=== PATIENT | female | born 1940 | race Asian ===

== ENCOUNTER 2017-04-06 22:11 | Observation (INO) | payer MEDICARE, MEDICAID ==
[~2017-04-06] VITALS: Ht 157.5 cm; Wt 59.2 kg
[~2017-04-06 22:11] MED LIST: AMLO10TA4 PO; BISA10SU54 PR; CARV12.543 PO; CLON0.1T PO; DIPH1TAB PO; DOCU-131 PO; GABA300C10 PO; HYDR12.53 PO; INSU100C5 SQ-INSULIN; LISI40TA PO; METF500T9 PO; ONDA4TAB10 PO; OXYB5TAB7 PO; POLY17PO5 PO; SIMV20TA3 PO; TEMA15CA PO; TRAM-47 PO; [UNRECOGNIZED DRUG - CODE] PO; coreg; lisinopril
[2017-04-06 22:57] LABS: HEMATOCRIT 50.5 % (34.6-47.8); HEMOGLOBIN 17.1 g/dL (11.7-16.4); WHITE BLOOD COUNT 12.3 x10^3/uL (3.4-10)
[2017-04-06 23:09] LABS: ASPARTATE AMINO TRANSFERASE 37 U/L (15-37); BLOOD UREA NITROGEN 21 mg/dL (7-18)
[2017-04-06 23:15] LABS: IS PT STATUS REG ER OR PRE ER? YES
[2017-04-07] MEDS ORDERED: SODIUM CHLORIDE FLUSH 10ML SYR IVF PRN (02:30)
[2017-04-07] MEDS: SODIUM CHLORIDE 0.9% 1,000 ML IV SCH ×2 (02:41→12:35)
[2017-04-07] MEDS ORDERED: SODIUM CHLORIDE 0.9% 1,000ML IVBOLUS ONE (03:00)
[2017-04-07] MEDS ORDERED: ONDANSETRON 2MG/ML, 2ML IVPush PRN (03:00)
[2017-04-07] MEDS ORDERED: GLUCAGON 1 MG IM PRN (03:00)
[2017-04-07] MEDS ORDERED: DEXTROSE 50%, 50ML SYRINGE IVPush PRN (03:00)
[2017-04-07] MEDS ORDERED: DEXTROSE 4 GM TAB.CHEW PO PRN (03:00)
[2017-04-07] MEDS ORDERED: hydrALAzine 20 MG/ML, 1ML IVPush PRN (03:00)
[2017-04-07] MEDS ORDERED: ENOXAPARIN 40 MG/0.4 ML ONE (03:30)
[2017-04-07 03:44] VITALS: BP 160/88
[2017-04-07] MEDS: ENOXAPARIN 40 MG/0.4 ML SQ SCH (05:12)
[2017-04-07 07:53] VITALS: BP 108/62
[2017-04-07] MEDS: OXYBUTYNIN CHLORIDE 5 MG TABLET PO SCH ×2 (08:07→21:25)
[2017-04-07] MEDS: SODIUM CHLORIDE FLUSH 10ML SYR IVF SCH ×2 (08:07→20:50)
[2017-04-07] MEDS: metFORMIN XR 500 MG TAB.ER.24H PO SCH ×2 (08:07→21:27)
[2017-04-07 12:51] VITALS: BP 130/74
[2017-04-07 20:00] VITALS: BP 153/78
[2017-04-07] MEDS: SIMVASTATIN 20 MG TABLET PO SCH (20:50)
[2017-04-08 02:00] VITALS: BP 142/72
[2017-04-08] MEDS: SODIUM CHLORIDE 0.9% 1,000 ML IV SCH ×3 (02:51→22:37)
[2017-04-08] MEDS: ASPIRIN 81 MG TABLET EC PO SCH (05:24)
[2017-04-08] MEDS: ENOXAPARIN 40 MG/0.4 ML SQ SCH (05:25)
[2017-04-08 06:39] LABS: HEMATOCRIT 39.7 % (34.6-47.8); HEMOGLOBIN 13.6 g/dL (11.7-16.4); WHITE BLOOD COUNT 4.8 x10^3/uL (3.4-10)
[2017-04-08 06:55] LABS: ASPARTATE AMINO TRANSFERASE 24 U/L (15-37); BLOOD UREA NITROGEN 13 mg/dL (7-18)
[2017-04-08 08:35] VITALS: BP 146/85
[2017-04-08] MEDS: OXYBUTYNIN CHLORIDE 5 MG TABLET PO SCH ×2 (09:51→21:10)
[2017-04-08] MEDS: metFORMIN XR 500 MG TAB.ER.24H PO SCH ×2 (09:52→21:10)
[2017-04-08] MEDS: SODIUM CHLORIDE FLUSH 10ML SYR IVF SCH ×2 (09:52→21:10)
[2017-04-08 13:55] VITALS: BP 134/80
[2017-04-08 20:00] VITALS: BP 179/78
[2017-04-08] MEDS: SIMVASTATIN 20 MG TABLET PO SCH (21:10)
[2017-04-08] MEDS: ACETAMINOPHEN 325 MG TABLET PO PRN (21:10)
[2017-04-08 23:11] VITALS: BP 162/80
[2017-04-09 02:00] VITALS: BP 167/73
[2017-04-09] MEDS: ASPIRIN 81 MG TABLET EC PO SCH (05:37)
[2017-04-09] MEDS: ENOXAPARIN 40 MG/0.4 ML SQ SCH (05:37)
[2017-04-09 08:10] VITALS: BP 172/89
[2017-04-09 09:15] VITALS: BP_SYST 148; BP_SYST 157; BP_DIAS 79
[2017-04-09] MEDS: OXYBUTYNIN CHLORIDE 5 MG TABLET PO SCH ×2 (09:19→20:07)
[2017-04-09] MEDS: SODIUM CHLORIDE FLUSH 10ML SYR IVF SCH ×2 (09:19→20:07)
[2017-04-09] MEDS: SODIUM CHLORIDE 0.9% 1,000 ML IV SCH ×2 (09:19→20:07)
[2017-04-09] MEDS: metFORMIN XR 500 MG TAB.ER.24H PO SCH ×2 (09:19→20:08)
[2017-04-09] MEDS ORDERED: ASPI-621 PO (10:59)
[2017-04-09 12:57] VITALS: BP 158/73
[2017-04-09] MEDS: SIMVASTATIN 20 MG TABLET PO SCH (20:08)
[2017-04-09 20:15] VITALS: BP 180/74
[2017-04-10 01:36] VITALS: BP 191/89
[2017-04-10 05:51] VITALS: BP 168/79
[2017-04-10] MEDS: ENOXAPARIN 40 MG/0.4 ML SQ SCH (05:55)
[2017-04-10] MEDS: ASPIRIN 81 MG TABLET EC PO SCH (05:55)
[2017-04-10] MEDS: SODIUM CHLORIDE 0.9% 1,000 ML IV SCH ×2 (05:55→14:24)
[2017-04-10 07:09] VITALS: BP 151/80
[2017-04-10] MEDS ORDERED: METO-93 PO (08:47)
[2017-04-10] MEDS ORDERED: LISI-170 PO (08:47)
[2017-04-10] MEDS: METOPROLOL SUCCINATE 50 MG TAB.ER.24H PO SCH (09:00)
[2017-04-10] MEDS ORDERED: METOPROLOL SUCCINATE 25 MG TAB.ER.24H ONE (09:09)
[2017-04-10] MEDS: LISINOPRIL 20 MG TABLET PO SCH ×2 (09:20→20:43)
[2017-04-10] MEDS: OXYBUTYNIN CHLORIDE 5 MG TABLET PO SCH ×2 (09:20→20:43)
[2017-04-10] MEDS: metFORMIN XR 500 MG TAB.ER.24H PO SCH ×2 (09:22→20:43)
[2017-04-10] MEDS: SODIUM CHLORIDE FLUSH 10ML SYR IVF SCH ×2 (09:27→20:43)
[2017-04-10] MEDS ORDERED: PNEUMOCOCCAL 23 VACCINE IM-VACC ONE (10:00)
[2017-04-10] MEDS ORDERED: FLU VACC QS2017-18 (36MOS+) UP/PF 0.5 ML IM-VACC ONE (10:00)
[2017-04-10 12:13] VITALS: BP 171/80
[2017-04-10 12:52] VITALS: BP 166/72
[2017-04-10 19:21] VITALS: BP 105/62
[2017-04-10] MEDS: SIMVASTATIN 20 MG TABLET PO SCH (20:43)
[2017-04-10] MEDS: ACETAMINOPHEN 325 MG TABLET PO PRN (20:44)
[2017-04-11] MEDS: SODIUM CHLORIDE 0.9% 1,000 ML IV SCH ×3 (01:00→17:38)
[2017-04-11 02:39] VITALS: BP 153/64
[2017-04-11] MEDS: METOPROLOL SUCCINATE 50 MG TAB.ER.24H PO SCH (06:36)
[2017-04-11] MEDS: ENOXAPARIN 40 MG/0.4 ML SQ SCH (06:36)
[2017-04-11] MEDS: ASPIRIN 81 MG TABLET EC PO SCH (06:36)
[2017-04-11 08:00] VITALS: BP 152/78
[2017-04-11] MEDS: OXYBUTYNIN CHLORIDE 5 MG TABLET PO SCH ×2 (08:00→20:15)
[2017-04-11] MEDS: LISINOPRIL 20 MG TABLET PO SCH ×2 (08:00→20:15)
[2017-04-11] MEDS: SODIUM CHLORIDE FLUSH 10ML SYR IVF SCH ×2 (08:00→20:15)
[2017-04-11] MEDS: metFORMIN XR 500 MG TAB.ER.24H PO SCH ×2 (08:00→20:15)
[2017-04-11 14:00] VITALS: BP 147/72
[2017-04-11 18:48] VITALS: BP 140/71
[2017-04-11] MEDS: SIMVASTATIN 20 MG TABLET PO SCH (20:15)
[2017-04-12 00:52] VITALS: BP 149/88
[2017-04-12] MEDS: SODIUM CHLORIDE 0.9% 1,000 ML IV SCH (05:02)
[2017-04-12] MEDS: ASPIRIN 81 MG TABLET EC PO SCH (05:02)
[2017-04-12] MEDS: ENOXAPARIN 40 MG/0.4 ML SQ SCH (05:03)
[2017-04-12] MEDS: METOPROLOL SUCCINATE 50 MG TAB.ER.24H PO SCH (05:03)
[2017-04-12 06:59] VITALS: BP 175/77
[2017-04-12] MEDS: OXYBUTYNIN CHLORIDE 5 MG TABLET PO SCH ×2 (08:03→20:33)
[2017-04-12] MEDS: metFORMIN XR 500 MG TAB.ER.24H PO SCH ×2 (08:03→20:33)
[2017-04-12] MEDS: LISINOPRIL 20 MG TABLET PO SCH ×2 (08:04→20:33)
[2017-04-12] MEDS: SODIUM CHLORIDE FLUSH 10ML SYR IVF SCH ×2 (08:04→20:33)
[2017-04-12 14:28] VITALS: BP 157/67
[2017-04-12] MEDS: SIMVASTATIN 20 MG TABLET PO SCH (20:33)
[2017-04-12 20:44] VITALS: BP 176/82
[2017-04-12] MEDS: ACETAMINOPHEN 325 MG TABLET PO PRN (21:27)
[2017-04-12 21:47] VITALS: BP 156/72
[2017-04-13 00:56] VITALS: BP 135/76
[2017-04-13] MEDS: METOPROLOL SUCCINATE 50 MG TAB.ER.24H PO SCH (05:34)
[2017-04-13] MEDS: ENOXAPARIN 40 MG/0.4 ML SQ SCH (05:34)
[2017-04-13] MEDS: ASPIRIN 81 MG TABLET EC PO SCH (05:34)
[2017-04-13 07:25] VITALS: BP 137/76
[2017-04-13] MEDS: metFORMIN XR 500 MG TAB.ER.24H PO SCH ×2 (08:29→19:48)
[2017-04-13] MEDS: LISINOPRIL 20 MG TABLET PO SCH ×2 (08:29→19:49)
[2017-04-13] MEDS: SODIUM CHLORIDE FLUSH 10ML SYR IVF SCH ×2 (08:29→19:49)
[2017-04-13] MEDS: OXYBUTYNIN CHLORIDE 5 MG TABLET PO SCH ×2 (08:29→19:49)
[2017-04-13 13:57] VITALS: BP 136/74
[2017-04-13 19:04] VITALS: BP 152/81
[2017-04-13] MEDS: SIMVASTATIN 20 MG TABLET PO SCH (19:49)
[2017-04-14 01:10] VITALS: BP 148/86
[2017-04-14] MEDS: ENOXAPARIN 40 MG/0.4 ML SQ SCH (06:07)
[2017-04-14] MEDS: ASPIRIN 81 MG TABLET EC PO SCH (06:07)
[2017-04-14] MEDS: METOPROLOL SUCCINATE 50 MG TAB.ER.24H PO SCH (06:07)
[2017-04-14 08:00] VITALS: BP 128/71
[2017-04-14] MEDS: SODIUM CHLORIDE FLUSH 10ML SYR IVF SCH (09:44)
[2017-04-14] MEDS: LISINOPRIL 20 MG TABLET PO SCH (09:45)
[2017-04-14] MEDS: metFORMIN XR 500 MG TAB.ER.24H PO SCH (09:45)
[2017-04-14] MEDS: OXYBUTYNIN CHLORIDE 5 MG TABLET PO SCH (09:45)
[2017-04-14 14:33] VITALS: BP 121/54
== END 2017-04-14 21:30 | disposition home or self-care (01) ==
LOC: ED 04-07 01:11 → INTOOBSV 04-07 02:18 → EDIP 04-07 02:18 → SUATTDRO 04-07 02:35 → 4WST 04-07 04:44
PROVIDERS: ADMIT Hospitalist; ATTEND Internal Medicine
DX: R29.6 Repeated falls (principal); M62.82 Rhabdomyolysis; I10 Essential (primary) hypertension; R53.1 Weakness; E11.9 Type 2 diabetes mellitus without complications; R53.81 Other malaise; N17.8 Other acute kidney failure; N17.0 Acute kidney failure with tubular necrosis; R32 Unspecified urinary incontinence; I69.322 Dysarthria following cerebral infarction; I69.354 Hemiplegia and hemiparesis following cerebral infarction affecting left non-dominant side; E86.0 Dehydration; Z82.49 Family history of ischemic heart disease and other diseases of the circulatory system
CPT/HCPCS: 36415; 70450; 71010; 80053; 81001; 82550; 82962; 83036; 84484; 85025; 87324; 90471; 90472; 90686; 90732; 92610; 93005; 96361; 96372; 96374; 97116; 97162; 97166; 97530; 97535; 99285; G0378; G8978; G8979; G8980; J0360; J1650; J7030

== ENCOUNTER 2017-08-19 15:09 | Observation (INO) | payer MEDICARE, MEDICAID ==
[2017-08-19] VITALS (7 sets, daily range): BP systolic 114–191; BP diastolic 63–85
[~2017-08-19] VITALS: Ht 157.5 cm; Wt 61.9 kg
[~2017-08-19 15:09] MED LIST changes: +ACET-1751 PO; +ASPI-621 PO; +LISI-170 PO; +METO-93 PO; -[UNRECOGNIZED DRUG - CODE] PO
[2017-08-19] MEDS ORDERED: SODIUM CHLORIDE 0.9% 1,000 ML IV ONE (15:34)
[2017-08-19 15:57] LABS: BASOPHILS # (AUTO) 0.04 x10^3/uL (0-0.1); BASOPHILS % (AUTO) 1 % (0-1); EOSINOPHILS # (AUTO) 0.03 x10^3/uL (0-0.4); EOSINOPHILS % (AUTO) 0 % (1-7); LYMPHOCYTES # (AUTO) 2.87 x10^3/uL (1-3.4); LYMPHOCYTES % (AUTO) 39 % (22-44); MD NO; MEAN CORPUSCULAR HEMOGLOBIN 29.5 pg (27.0-34.8); MEAN CORPUSCULAR HGB CONC 33.7 g/dL (32.4-35.8); MEAN CORPUSCULAR VOLUME 87.4 fL (80-100); MONOCYTES # (AUTO) 0.49 x10^3/uL (0.2-0.8); MONOCYTES % (AUTO) 7 % (2-9); NEUTROPHILS % (AUTO) 53 % (42-75); PLATELET COUNT 247 x10^3/uL (130-400); RED CELL DISTRIBUTION WIDTH 13.6 % (9.6-15.2)
[2017-08-19] MEDS ORDERED: SODIUM CHLORIDE FLUSH 10ML SYR IVF ONE (16:00)
[2017-08-19 16:11] LABS: ALANINE AMINOTRANSFERASE 30 U/L (12-78); ALBUMIN 3.8 g/dL (3.4-5.0); ANION GAP 9 mmol/L (5-15); CALCIUM 9.1 mg/dL (8.5-10.1); CHLORIDE 100 mmol/L (98-107); CREATININE 1.21 mg/dL (0.55-1.02)
[2017-08-19 16:16] LABS: ALKALINE PHOSPHATASE 86 U/L (45-117); BILIRUBIN,TOTAL 0.4 mg/dL (0.2-1.0); TOTAL PROTEIN 8.2 g/dL (6.4-8.2); TROPONIN I < 0.015 ng/mL (0.000-0.045)
[2017-08-19] MEDS ORDERED: LISI-167 PO (17:20)
[2017-08-19] MEDS ORDERED: HYDR25TA6 PO (17:22)
[2017-08-19] MEDS ORDERED: ENALAPRILAT 1.25 MG/ML, 2ML IVPush PRN (17:30)
[2017-08-19] MEDS ORDERED: BISACODYL 10 MG SUPP PR PRN (17:30)
[2017-08-19] MEDS ORDERED: ONDANSETRON 2MG/ML, 2ML IVPush PRN (17:30)
[2017-08-19] MEDS ORDERED: MORPHINE SULFATE 4 MG/ML, 1ML IVPush PRN (17:30)
[2017-08-19] MEDS ORDERED: hydrALAzine 20 MG/ML, 1ML IVPush PRN (17:30)
[2017-08-19] MEDS ORDERED: DOCUSATE 100 MG CAPSULE PO PRN (17:30)
[2017-08-19] MEDS ORDERED: ONDANSETRON ODT 4 MG PO PRN (17:30)
[2017-08-19] MEDS ORDERED: POLYETHYLENE GLYCOL 17 GM PACKET PO PRN (17:30)
[2017-08-19] MEDS: SODIUM CHLORIDE 0.9% 1,000 ML IV SCH (19:50)
[2017-08-19] MEDS: OXYBUTYNIN CHLORIDE 5 MG TABLET PO SCH (19:50)
[2017-08-19] MEDS: INSULIN LISPRO 100 UNITS/ML, PEN SQ-INSULIN SCH (19:51)
[2017-08-19 20:17] LABS: MICROSCOPIC AUTO
[2017-08-19 20:20] LABS: CULTURE INDICATED? YES
[2017-08-19 20:32] LABS: TROPONIN I < 0.015 ng/mL (0.000-0.045)
[2017-08-19] MEDS ORDERED: NITROGLYCERIN 0.4 MG/SPRAY SL PRN (22:30)
[2017-08-19] MEDS: NITROGLYCERIN 0.4 MG BOTTLE (25 TABS) SL PRN ×2 (22:46→23:01)
[2017-08-19] MEDS: ACETAMINOPHEN 325 MG TABLET PO PRN (23:11)
[2017-08-20 01:55] LABS: BASOPHILS # (AUTO) 0.02 x10^3/uL (0-0.1); BASOPHILS % (AUTO) 0 % (0-1); EOSINOPHILS # (AUTO) 0.02 x10^3/uL (0-0.4); EOSINOPHILS % (AUTO) 0 % (1-7); LYMPHOCYTES # (AUTO) 2.37 x10^3/uL (1-3.4); LYMPHOCYTES % (AUTO) 34 % (22-44); MD NO; MEAN CORPUSCULAR HEMOGLOBIN 29.9 pg (27.0-34.8); MEAN CORPUSCULAR HGB CONC 33.8 g/dL (32.4-35.8); MEAN CORPUSCULAR VOLUME 88.6 fL (80-100); MEAN PLATELET VOLUME 7.9 fL (7.4-10.4); MONOCYTES # (AUTO) 0.39 x10^3/uL (0.2-0.8); MONOCYTES % (AUTO) 6 % (2-9); NEUTROPHILS # (AUTO) 4.15 x10^3/uL (1.8-6.8); NEUTROPHILS % (AUTO) 60 % (42-75); PLATELET COUNT 221 x10^3/uL (130-400); RED BLOOD COUNT 4.72 x10^6/uL (3.82-5.3); RED CELL DISTRIBUTION WIDTH 13.3 % (9.6-15.2)
[2017-08-20 02:03] LABS: INTERNATIONAL NORMALIZED RATIO 0.97 (0.93-1.1)
[2017-08-20 02:07] LABS: ANION GAP 9 mmol/L (5-15); CALCIUM 8.3 mg/dL (8.5-10.1); CHLORIDE 101 mmol/L (98-107); CHOLESTEROL, TOTAL 167 mg/dL (140-239); CREATININE 1.24 mg/dL (0.55-1.02); TRIGLYCERIDES 132 mg/dL (50-200); VLDL CHOLESTEROL 26 mg/dL (0-25)
[2017-08-20 02:12] LABS: TROPONIN I < 0.015 ng/mL (0.000-0.045)
[2017-08-20 02:17] LABS: CHOL/HDL RATIO 4.1; HDL CHOL % 25 % (28-40); HDL CHOLESTEROL (DIRECT) 41 mg/dL (40-60); LDL CHOLESTEROL,CALCULATED 100 mg/dL (54-169); LDL/HDL RATIO 2.4 (0.5-3.0)
[2017-08-20 02:22] VITALS: BP 117/63
[2017-08-20] MEDS ORDERED: ASPIRIN 81 MG TABLET EC PO SCH (06:00)
[2017-08-20] MEDS: SODIUM CHLORIDE 0.9% 1,000 ML IV SCH (06:45)
[2017-08-20 06:50] VITALS: BP 166/79
[2017-08-20] MEDS: INSULIN LISPRO 100 UNITS/ML, PEN SQ-INSULIN SCH ×2 (07:00→12:08)
[2017-08-20 08:46] VITALS: BP 166/77
[2017-08-20] MEDS ORDERED: REGADENOSON 0.4 MG/5 ML SYRINGE ONE (08:51)
[2017-08-20] MEDS ORDERED: LISINOPRIL 20 MG TABLET PO SCH (09:00)
[2017-08-20] MEDS ORDERED: METOPROLOL SUCCINATE 50 MG TAB.ER.24H PO SCH (09:00)
[2017-08-20] MEDS ORDERED: SENNA/DOCUSATE TABLET PO SCH (09:00)
[2017-08-20] MEDS: ACETAMINOPHEN 325 MG TABLET PO PRN (09:04)
[2017-08-20 11:21] VITALS: BP 159/77
[2017-08-20] MEDS: OXYBUTYNIN CHLORIDE 5 MG TABLET PO SCH (11:24)
[2017-08-20 12:42] VITALS: BP 160/79
== END 2017-08-20 16:36 | disposition home or self-care (01) ==
LOC: ED 17:03 → EDIP 17:04 → INTOOBSV 17:04 → ED 17:09 → 5SO 18:05 → DCLOUNGE 08-20 16:27
PROVIDERS: ADMIT Family Medicine; ATTEND Family Medicine
DX: R07.89 Other chest pain (principal); E11.65 Type 2 diabetes mellitus with hyperglycemia; E86.0 Dehydration; I11.9 Hypertensive heart disease without heart failure; N17.0 Acute kidney failure with tubular necrosis; Z87.820 Personal history of traumatic brain injury
CPT/HCPCS: 36415; 71045; 78452; 80048; 80053; 80061; 81001; 82962; 83735; 84100; 84443; 84484; 85025; 85610; 87086; 93005; 93017; 96361; 96372; 96374; 99285; A9502; C9898; G0378; J0360; J1815; J2785; J7030

== ENCOUNTER 2020-10-04 11:29 | Emergency (ER) | payer MEDICARE, MEDICAID ==
[~2020-10-04] VITALS: Ht 162.6 cm; Wt 57.0 kg
[~2020-10-04 11:29] MED LIST changes: -ASPI-621 PO; +ASPI81TA45 PO; -CLON0.1T PO; +CLON0.1T22 PO; +HYDR12.517 PO; -HYDR12.53 PO; +HYDR25TA6 PO; +LISI-167 PO; -LISI40TA PO; +LISI40TA9 PO; +METF-754 PO; -METF500T9 PO; +OXYB5TAB10 PO; -OXYB5TAB7 PO; +SIMV20TA19 PO; -SIMV20TA3 PO
--- NOTE | 2020-10-04 12:41 | NUR ---
PT OFF THE FLOOR TO CT
--- NOTE | 2020-10-04 13:21 | NUR ---
PT BACK IN ROOM
[2020-10-04] MEDS ORDERED: ACETAMINOPHEN 325 MG TABLET PO ONE (14:00)
[2020-10-04] MEDS ORDERED: ACETAMINOPHEN 325 MG TABLET ONE (14:01)
[2020-10-04 14:03] VITALS: BP 124/76
--- NOTE | 2020-10-04 14:37 | NUR ---
PT REC'VD DISCHARGE INSTRUCTIONS AND EDUCATION. PT AND FAMILY MEMBER HAD NO QUESTIONS. PT PLACED IN WHEELCHAIR AND WHEELED TO DISCHARGE. PT SON TO DRIVE PT HOME.
[2020-10-05] MEDS ORDERED: ERGO500017 PO (16:26)
[2020-10-05] MEDS ORDERED: CALC200V NAS (16:26)
[2020-10-05] MEDS ORDERED: TRAM50TA2 PO (16:26)
[2020-10-05] MEDS ORDERED: FAMO1TAB3 PO (16:26)
[2020-10-05] MEDS ORDERED: LIDO700A20 TD (16:26)
== END 2020-10-04 14:40 | disposition home or self-care (01) ==
LOC: ED 12:01
DX: S33.5XXA Sprain of ligaments of lumbar spine, initial encounter (principal); S09.90XA Unspecified injury of head, initial encounter; R94.31 Abnormal electrocardiogram [ECG] [EKG]; W01.0XXA Fall on same level from slipping, tripping and stumbling without subsequent striking against object, initial encounter; Y93.89 Activity, other specified; Y92.89 Other specified places as the place of occurrence of the external cause; Y99.8 Other external cause status
CPT/HCPCS: 70450; 72110; 72190; 93005; 99285

== ENCOUNTER 2020-10-05 10:50 | Emergency (ER) | payer MEDICARE, MEDICAID ==
[~2020-10-05] VITALS: Ht 162.6 cm; Wt 68.3 kg
[2020-10-05 13:16] LABS: ALANINE AMINOTRANSFERASE 19 U/L (12-78); ALBUMIN 3.8 g/dL (3.4-5.0); ANION GAP 7 mmol/L (5-15); CALCIUM 9.4 mg/dL (8.5-10.1); CHLORIDE 104 mmol/L (98-107); CREATININE 1.12 mg/dL (0.55-1.02)
[2020-10-05 13:18] LABS: ALKALINE PHOSPHATASE 78 U/L (45-117); BILIRUBIN,TOTAL 0.8 mg/dL (0.2-1.0); TOTAL PROTEIN 7.8 g/dL (6.4-8.2)
--- NOTE | 2020-10-05 13:22 | NUR ---
TASK RN: performed straight cath to obtain UA. Pt tolerated well. auto glass technician walked sample to lab. bed rail upx2, bed in low position call light w/in reach.
[2020-10-05 13:25] LABS: BASOPHILS % (AUTO) 1 % (0-1); EOSINOPHILS % (AUTO) 0 % (1-7); LYMPHOCYTES % (AUTO) 14 % (22-44); MEAN CORPUSCULAR HEMOGLOBIN 30.3 pg (27.0-34.8); MEAN CORPUSCULAR HGB CONC 33.9 g/dL (32.4-35.8); MEAN PLATELET VOLUME 8.1 fL (7.4-10.4); MONOCYTES % (AUTO) 5 % (2-9); NEUTROPHILS % (AUTO) 81 % (42-75); PLATELET COUNT 200 x10^3/uL (130-400); RED BLOOD COUNT 4.48 x10^6/uL (3.82-5.3); RED CELL DISTRIBUTION WIDTH 12.9 % (9.6-15.2)
--- NOTE | 2020-10-05 13:35 | NUR ---
pt ambulated approx 10 steps. slow steady gait. pt reports generalized weakness. md aware. awaiting further orders
[2020-10-05 13:40] LABS: MICROSCOPIC AUTO
[2020-10-05 13:42] LABS: MD SCAN
--- NOTE | 2020-10-05 14:48 | NUR ---
REPORT RECEIVED FROM ODILIA DUMONT FOR TRANSFER OF PATIENT CARE.
--- NOTE | 2020-10-05 14:57 | NUR ---
ATTEMPTED TO CALL REPORT.
--- NOTE | 2020-10-05 15:53 | NUR ---
[facility] STATES [facility] IS NOT ADMITTING PATIENT. SPOKE WITH NEFTALY, WAITING FOR [facility] TO COME EVALUATE PATIENT AND DECIDE IF PATIENT WILL BE ADMITTED OR NOT.
--- NOTE | 2020-10-05 15:55 | NUR ---
[facility] AT BEDSIDE TO EVALUATE PATIENT.
--- NOTE | 2020-10-05 16:13 | NUR ---
PATIENT RESTING IN [facility], CONNECTED TO MONITORS, VSS, NADN, SON WILL BE BACK IN 45 MINUTES TO TAKE PATIENT HOME AFTER [facility] TALKS WITH GERIATRIC PHYSICIAN TO VERIFY HOME HEALTH HAS BEEN SET UP. SIDE RAILS UP X2, CALL LIGHT WITHIN REACH.
[2020-10-05] MEDS ORDERED: TRAM50TA2 PO (16:26)
[2020-10-05] MEDS ORDERED: CALC200V NAS (16:26)
[2020-10-05] MEDS ORDERED: FAMO1TAB3 PO (16:26)
[2020-10-05] MEDS ORDERED: ERGO500017 PO (16:26)
[2020-10-05] MEDS ORDERED: LIDO700A20 TD (16:26)
--- NOTE | 2020-10-05 17:13 | NUR ---
SPOKE WITH SON, FAMILY FRIEND, JOEY WILL COME [employer]CIER PATIENT NOW.
--- NOTE | 2020-10-05 17:41 | NUR ---
IV removed with tip intact. Patient's caregiver given discharge instructions and they have confirmed that they understand the instructions. Patient wheeled from ED to private vehicle and assisted into vehicle by caregiver.
[2020-10-07 15:17] VITALS: BP 118/72
== END 2020-10-05 17:41 | disposition home or self-care (01) ==
LOC: SUATTDRO 14:36 → ED 14:51 → UNDOADMIN 15:11 → EDIP 15:11 → ED 17:41
PROVIDERS: ATTEND Internal Medicine
DX: S22.089A Unspecified fracture of T11-T12 vertebra, initial encounter for closed fracture (principal); S32.019A Unspecified fracture of first lumbar vertebra, initial encounter for closed fracture; R53.1 Weakness; I10 Essential (primary) hypertension; E11.9 Type 2 diabetes mellitus without complications; Z86.73 Personal history of transient ischemic attack (TIA), and cerebral infarction without residual deficits; W18.30XA Fall on same level, unspecified, initial encounter; Y93.89 Activity, other specified; Y92.89 Other specified places as the place of occurrence of the external cause; Y99.8 Other external cause status
CPT/HCPCS: 36415; 72131; 80053; 81001; 82962; 85025; 93005; 99285

== ENCOUNTER 2020-10-07 11:37 | Inpatient (IN) | payer MEDICARE, MEDICAID ==
[~2020-10-07] VITALS: Ht 157.5 cm; Wt 61.0 kg
[~2020-10-07 11:37] MED LIST changes: +CALC200V NAS; +ERGO500017 PO; +FAMO1TAB3 PO; +LIDO700A20 TD; +TRAM50TA2 PO
[2020-10-07] MEDS ORDERED: SODIUM CHLORIDE FLUSH 10ML SYR IVF ONE (12:00)
[2020-10-07] MEDS ORDERED: PLEASE ENTER HEIGHT AND WEIGHT MC SCH (12:00)
[2020-10-07] MEDS ORDERED: SODIUM CHLORIDE 0.9% 1,000ML IVBOLUS ONE (12:00)
--- NOTE | 2020-10-07 12:15 | NUR ---
PT BIB EMS FROM [facility]". PT WAS FOUND BY STAFF TO BE UNRESPONSIVE. EMS ARRIVED HER RECTAL TEMP WAS 106 AND EMS ADM [id number] RECTAL TYLENOL. UPON ARRIVE TO ER PT RECTAL TEMP 105.7. COOLING MEASURES IN PLACE - ICE PACKS TO NECK, GROIN, UNDERARMS. [address] WAY LORENZO CATHETER PLACED AND COOL SALINE IS FLUSHING BLADDER. EKG COMPLETE. LABS DRAWN. UA SENT. PT CONNECTED TO ALL MONITORING EQUIPMENT
[2020-10-07 12:18] LABS: BASOPHILS % (AUTO) 0 % (0-1); EOSINOPHILS % (AUTO) 0 % (1-7); LYMPHOCYTES % (AUTO) 6 % (22-44); MEAN CORPUSCULAR HEMOGLOBIN 30.7 pg (27.0-34.8); MEAN CORPUSCULAR HGB CONC 34.2 g/dL (32.4-35.8); MEAN PLATELET VOLUME 8.2 fL (7.4-10.4); MONOCYTES % (AUTO) 4 % (2-9); NEUTROPHILS % (AUTO) 91 % (42-75); PLATELET COUNT 226 x10^3/uL (130-400); RED BLOOD COUNT 4.51 x10^6/uL (3.82-5.3)
[2020-10-07 12:30] LABS: ALBUMIN 3.4 g/dL (3.4-5.0); ANION GAP 11 mmol/L (5-15); CALCIUM 9.1 mg/dL (8.5-10.1); CHLORIDE 104 mmol/L (98-107)
[2020-10-07 12:33] LABS: MICROSCOPIC INDICATED
[2020-10-07 12:33] LABS: ALANINE AMINOTRANSFERASE 20 U/L (12-78); ALKALINE PHOSPHATASE 83 U/L (45-117); BILIRUBIN,TOTAL 0.8 mg/dL (0.2-1.0); CREATININE 3.28 mg/dL (0.55-1.02); TOTAL PROTEIN 8.3 g/dL (6.4-8.2)
[2020-10-07 12:37] LABS: MD SCAN
--- NOTE | 2020-10-07 12:53 | NUR ---
PT RETURNED FROM CT. WHEN MOVING PT TO CT TABLE PT MADE SOME INCOMPREHENSIBLE SOUNDS. PT STILL REPSONDING TO HER NAME. UNABLE TO ANSWER QUESTIONS
[2020-10-07] MEDS ORDERED: CEFTRIAXONE 1,000 MG in DEXTROSE 5% 50 ML IVPB ONE ×2 (13:00→15:00)
[2020-10-07] MEDS: PLEASE ENTER WEIGHT MC SCH ×2 (13:00→21:00)
--- NOTE | 2020-10-07 13:22 | NUR ---
PT RECTAL TEMP NOW 100.0 MD NOTIFIED. COOLING MEASURES PLACED ON HOLD. WCTM
--- NOTE | 2020-10-07 13:25 | NUR ---
PT FOLLOWING COMMANDS. STILL UNABLE TO VERBALLY COMMUNICATE
[2020-10-07] MEDS: DOXYCYCLINE 100 MG in DEXTROSE 5% 250 ML IV SCH (14:03)
[2020-10-07 14:30] VITALS: BP 107/69
[2020-10-07 15:00] VITALS: BP 112/72
[2020-10-07] MEDS ORDERED: ONDANSETRON ODT 4 MG PO PRN (15:00)
[2020-10-07] MEDS ORDERED: ONDANSETRON 2MG/ML, 2ML IVPush PRN (15:00)
[2020-10-07] MEDS: SODIUM CHLORIDE 0.9% 1,000 ML IV SCH (15:00)
[2020-10-07] MEDS ORDERED: CEFTRIAXONE 1,000 MG IV ONE (15:00)
[2020-10-07] MEDS ORDERED: PHARMACY MAY ADJ FOR RENAL FX MC PRN (15:30)
[2020-10-07] MEDS ORDERED: DEXTROSE 4 GM TAB.CHEW PO PRN (15:30)
[2020-10-07] MEDS ORDERED: GLUCAGON 1 MG IM PRN (15:30)
[2020-10-07] MEDS ORDERED: DEXTROSE 50%, 50ML SYRINGE IVPush PRN (15:30)
[2020-10-07 15:48] LABS: HCT (SEDRATE) 40.5 % (34.6-47.8)
[2020-10-07 15:49] LABS: ANION GAP 10 mmol/L (5-15); CHLORIDE 105 mmol/L (98-107); CREATININE 3.19 mg/dL (0.55-1.02)
[2020-10-07 15:51] LABS: CREATINE KINASE, TOTAL 201 U/L (26-192)
[2020-10-07] MEDS: AMPICILLIN/SULBACTAM 3 GM in SODIUM CHLORIDE 0.9% 100 ML IV SCH ×2 (17:50→23:13)
[2020-10-07] MEDS: HEPARIN 5,000 UNITS/ML, 1ML SQ SCH (18:00)
[2020-10-07] MEDS: INSULIN LISPRO 100 UNITS/ML, PEN SQ-INSULIN SCH ×2 (18:40→21:30)
[2020-10-07 19:21] VITALS: BP 123/70
[2020-10-07 20:30] VITALS: BP 88/50
[2020-10-07] MEDS: SODIUM CHLORIDE FLUSH 10ML SYR IVF SCH (21:30)
[2020-10-07 21:31] VITALS: BP 110/62
[2020-10-07 23:31] VITALS: BP 110/66
[2020-10-08] VITALS (7 sets, daily range): BP systolic 104–149; BP diastolic 60–75
[2020-10-08] MEDS: HEPARIN 5,000 UNITS/ML, 1ML SQ SCH ×3 (02:19→18:27)
[2020-10-08] MEDS: DOXYCYCLINE 100 MG in DEXTROSE 5% 250 ML IV SCH ×2 (02:19→15:05)
[2020-10-08] MEDS: PLEASE ENTER WEIGHT MC SCH (05:00)
[2020-10-08 05:53] LABS: ALBUMIN 2.7 g/dL (3.4-5.0); ANION GAP 6 mmol/L (5-15); CALCIUM 7.9 mg/dL (8.5-10.1); CHLORIDE 108 mmol/L (98-107)
[2020-10-08 05:58] LABS: ALANINE AMINOTRANSFERASE 19 U/L (12-78); ALKALINE PHOSPHATASE 56 U/L (45-117); BILIRUBIN,TOTAL 0.5 mg/dL (0.2-1.0); CREATININE 1.95 mg/dL (0.55-1.02); TOTAL PROTEIN 6.3 g/dL (6.4-8.2)
[2020-10-08] MEDS: INSULIN LISPRO 100 UNITS/ML, PEN SQ-INSULIN SCH ×4 (07:00→21:18)
[2020-10-08] MEDS: AMPICILLIN/SULBACTAM 3 GM in SODIUM CHLORIDE 0.9% 100 ML IV SCH ×3 (07:39→23:31)
[2020-10-08 07:42] LABS: BASOPHILS % (AUTO) 0 % (0-1); EOSINOPHILS % (AUTO) 0 % (1-7); LYMPHOCYTES % (AUTO) 16 % (22-44); MEAN CORPUSCULAR HEMOGLOBIN 30.5 pg (27.0-34.8); MEAN CORPUSCULAR HGB CONC 33.4 g/dL (32.4-35.8); MEAN PLATELET VOLUME 8.3 fL (7.4-10.4); MONOCYTES % (AUTO) 8 % (2-9); NEUTROPHILS % (AUTO) 76 % (42-75); PLATELET COUNT 172 x10^3/uL (130-400); RED BLOOD COUNT 3.62 x10^6/uL (3.82-5.3); RED CELL DISTRIBUTION WIDTH 12.8 % (9.6-15.2)
[2020-10-08] MEDS: SODIUM CHLORIDE FLUSH 10ML SYR IVF SCH ×2 (07:44→21:19)
[2020-10-08 07:54] LABS: MD NO
[2020-10-08] MEDS: ACETAMINOPHEN 325 MG TABLET PO PRN ×3 (08:30→21:17)
[2020-10-08] MEDS: SODIUM CHLORIDE 0.9% 1,000 ML IV SCH ×2 (10:11→18:27)
[2020-10-08] MEDS: morphine SULFATE 10 MG/ML, 1ML IVPush PRN ×2 (22:51→23:32)
[2020-10-09] VITALS (9 sets, daily range): BP systolic 136–191; BP diastolic 67–99
[2020-10-09] MEDS ORDERED: MELATONIN 5 MG TABLET ONE (00:33)
[2020-10-09] MEDS: MELATONIN 5 MG TABLET PO PRN (00:44)
[2020-10-09] MEDS: DOXYCYCLINE 100 MG in DEXTROSE 5% 250 ML IV SCH ×2 (02:17→14:00)
[2020-10-09] MEDS: HEPARIN 5,000 UNITS/ML, 1ML SQ SCH ×3 (02:18→18:03)
[2020-10-09] MEDS: SODIUM CHLORIDE 0.9% 1,000 ML IV SCH ×2 (05:47→11:46)
[2020-10-09 05:50] LABS: CALCIUM 7.9 mg/dL (8.5-10.1); CHLORIDE 112 mmol/L (98-107)
[2020-10-09 05:53] LABS: ANION GAP 5 mmol/L (5-15); CREATININE 0.94 mg/dL (0.55-1.02)
[2020-10-09] MEDS: ACETAMINOPHEN 325 MG TABLET PO PRN (05:53)
[2020-10-09] MEDS: morphine SULFATE 10 MG/ML, 1ML IVPush PRN ×2 (05:54→15:38)
[2020-10-09] MEDS ORDERED: MAGNESIUM SULFATE 1 GM in SODIUM CHLORIDE 0.9% 50 ML IV ONE (06:30)
[2020-10-09] MEDS ORDERED: MAGNESIUM SULFATE/D5W 100 ML ONE (06:43)
[2020-10-09] MEDS: AMPICILLIN/SULBACTAM 3 GM in SODIUM CHLORIDE 0.9% 100 ML IV SCH ×2 (07:19→15:25)
[2020-10-09] MEDS: SODIUM CHLORIDE FLUSH 10ML SYR IVF SCH (07:21)
[2020-10-09] MEDS: INSULIN LISPRO 100 UNITS/ML, PEN SQ-INSULIN SCH ×4 (07:23→21:00)
[2020-10-09] MEDS ORDERED: LISINOPRIL 20 MG TABLET PO ONE (18:00)
[2020-10-09] MEDS ORDERED: LISINOPRIL 20 MG TABLET ONE (18:00)
[2020-10-09] MEDS ORDERED: METOPROLOL SUCCINATE 50 MG TAB.ER.24H ONE (18:00)
[2020-10-09] MEDS ORDERED: METOPROLOL SUCCINATE 50 MG TAB.ER.24H PO ONE (18:00)
[2020-10-10] VITALS (8 sets, daily range): BP systolic 149–187; BP diastolic 77–95
[2020-10-10] MEDS: AMPICILLIN/SULBACTAM 3 GM in SODIUM CHLORIDE 0.9% 100 ML IV SCH ×2 (00:26→08:32)
[2020-10-10] MEDS: morphine SULFATE 10 MG/ML, 1ML IVPush PRN ×3 (00:27→06:36)
[2020-10-10] MEDS: SODIUM CHLORIDE FLUSH 10ML SYR IVF SCH ×2 (00:28→08:31)
[2020-10-10] MEDS: MELATONIN 5 MG TABLET PO PRN (02:10)
[2020-10-10] MEDS: DOXYCYCLINE 100 MG in DEXTROSE 5% 250 ML IV SCH (02:10)
[2020-10-10] MEDS: HEPARIN 5,000 UNITS/ML, 1ML SQ SCH ×2 (02:11→09:50)
[2020-10-10] MEDS: LABETALOL 5MG/ML, 20ML IVPush PRN ×2 (02:22→09:49)
[2020-10-10] MEDS: ACETAMINOPHEN 325 MG TABLET PO PRN (05:24)
[2020-10-10] MEDS ORDERED: ASPIRIN 81 MG TABLET EC PO SCH (06:00)
[2020-10-10 06:02] LABS: ANION GAP 4 mmol/L (5-15); CALCIUM 8.6 mg/dL (8.5-10.1); CHLORIDE 111 mmol/L (98-107); CREATININE 0.85 mg/dL (0.55-1.02)
[2020-10-10] MEDS: INSULIN LISPRO 100 UNITS/ML, PEN SQ-INSULIN SCH (07:00)
[2020-10-10] MEDS ORDERED: AMOX875T PO (07:47)
[2020-10-10] MEDS ORDERED: DOXY100T PO (07:47)
[2020-10-10] MEDS ORDERED: METR500T PO (07:47)
[2020-10-10] MEDS ORDERED: METOPROLOL SUCCINATE 50 MG TAB.ER.24H PO SCH (09:00)
[2020-10-10] MEDS ORDERED: HYDROCHLOROTHIAZIDE 12.5 MG CAPSULE PO SCH (09:00)
[2020-10-10] MEDS ORDERED: LISINOPRIL 20 MG TABLET PO SCH (09:00)
[2020-10-10] MEDS ORDERED: metroNIDAZOLE 500 MG TABLET PO SCH (09:00)
== END 2020-10-10 10:34 | disposition home or self-care (01) | DRG 871 ==
LOC: ED 11:47 → EDIP 13:43 → SUATTDRO 13:47 → 4EST 15:11
PROVIDERS: ADMIT Family Medicine; ATTEND Family Medicine
PROC: 0T9B30Z Drainage of Bladder with Drainage Device, Percutaneous Approach (ICD-10-PCS; principal; 2020-10-07)
DX: A41.9 Sepsis, unspecified organism (principal); G93.41 Metabolic encephalopathy; J18.9 Pneumonia, unspecified organism; J96.01 Acute respiratory failure with hypoxia; N39.0 Urinary tract infection, site not specified; M48.56XA Collapsed vertebra, not elsewhere classified, lumbar region, initial encounter for fracture; N17.9 Acute kidney failure, unspecified; Z20.822 Contact with and (suspected) exposure to COVID-19; E87.5 Hyperkalemia; E11.65 Type 2 diabetes mellitus with hyperglycemia; E78.5 Hyperlipidemia, unspecified; I11.9 Hypertensive heart disease without heart failure; E04.1 Nontoxic single thyroid nodule; N32.81 Overactive bladder; R65.20 Severe sepsis without septic shock; Z86.73 Personal history of transient ischemic attack (TIA), and cerebral infarction without residual deficits; Z88.8 Allergy status to other drugs, medicaments and biological substances; Z79.899 Other long term (current) drug therapy
CPT/HCPCS: 36415; 70450; 71045; 71250; 80048; 80053; 81001; 82550; 82962; 83605; 83735; 84100; 84145; 85025; 85651; 87040; 87086; 93005; 96360; G0378; J0295; J0696; J1644; J2405; J3475; J7060; U0005; J1815; J2270; J7030; U0003